=== PATIENT | female | born 1950 ===

== ENCOUNTER 2019-03-10 08:03 | Outpatient (CLI) | payer MEDICARE, OTHER | END 2019-03-10 08:04 | disposition home or self-care (01) | LOC: C.LAB 08:03 | DX: N39.0 Urinary tract infection, site not specified (principal); E11.9 Type 2 diabetes mellitus without complications; E55.9 Vitamin D deficiency, unspecified; M32.10 Systemic lupus erythematosus, organ or system involvement unspecified ==